=== PATIENT | male | born 1955 | race Caucasian/White ===

== ENCOUNTER 2018-01-29 08:26 | Emergency (ER) | payer SELFPAY ==
--- NOTE | 2018-01-29 09:41 | ER ---
Nurse's Notes [facility] Name: Manfred Dominguez Age: 62 yrs Sex: Male : 1955 Arrival Date: 01/29/2018 Time: 08:30 Bed 6 Private MD: Out, [facility] Diagnosis: Sprain of other ligament of left ankle Presentation: 01/29 08:39 Presenting complaint: Patient states: fell off a step ladder about 1-2 feet high up on sv it. c/o left ankle pain and swelling. Denies head injury or LOC. Pt reports able to ambulate on it. Transition of care: patient was not received from another setting of care. Onset of symptoms was January 28, 2018. Risk Assessment: Do you want to hurt yourself or someone else? Patient reports no desire to harm self or others. Initial Sepsis Screen: Does the patient meet any 2 criteria? No. Patient's initial sepsis screen is negative. Does the patient have a suspected source of infection? No. Patient's initial sepsis screen is negative. Care prior to arrival: None. 08:39 Method Of Arrival: Wheelchair sv 08:39 Acuity: CHIARA 4 sv Triage Assessment: 08:47 General: Appears in no apparent distress. uncomfortable, Behavior is calm, cooperative, sv appropriate for age. Pain: Complains of pain in left lateral malleolus Pain currently is 6 out of 10 on a pain scale. at worst was 8 out of 10 on a pain scale. Quality of pain is described as throbbing, Pain began 1 day ago. Is intermittent, Aggravated by increased activity, weight bearing. EENT: No signs and/or symptoms were reported regarding the EENT system. Neuro: Level of Consciousness is awake, alert, obeys commands, Oriented to person, place, time, situation, Speech is normal. Cardiovascular: Patient's skin is warm and dry. Respiratory: Respiratory effort is even, unlabored, Respiratory pattern is regular, symmetrical. Derm: Skin is pink, warm \T\ dry. Musculoskeletal: Range of motion: intact in all extremities. Historical: - Allergies: 08:45 No Known Allergies; sv - Home Meds: 08:45 unknown HTN med [Active]; sv - PMHx: 08:45 Hypertension; sv - PSHx: 08:45 Appendectomy; Cholecystectomy; sv - Immunization history:: Adult Immunizations up to date. - Social history:: Smoking status: Patient/guardian denies using tobacco, Patient/guardian denies using alcohol, street drugs. - Ebola Screening: : No symptoms or risks identified at this time. Screenin:46 Abuse screen: Denies threats or abuse. Denies injuries from another. Nutritional sv screening: No deficits noted. Tuberculosis screening: No symptoms or risk factors identified. Fall Risk None identified. Assessment: 08:48 Reassessment: See triage assessment. sv 09:50 Reassessment: Patient appears in no apparent distress at this time. No changes from sv previously documented assessment. Patient and/or family updated on plan of care and expected duration. Pain level reassessed. Patient is alert, oriented x 3, equal unlabored respirations, skin warm/dry/pink. Vital Signs: 08:46 BP 140 / 93; Pulse 64; Resp 18; Temp 98.1; Pulse Ox 98% ; Weight 74.84 kg; Height 6 ft. sv 0 in. (182.88 cm); Pain 6/10; 09:51 BP 123 / 72; Pulse 62; sv 08:46 Body Mass Index 22.38 (74.84 kg, 182.88 cm) sv ED Course: 08:30 Patient arrived in ED. sb2 08:31 Out, [facility] is Private Physician. sb2 08:39 Edwin Nelson MD is Attending Physician. gs 08:43 Isabelle Galeas, MICHELLE is Primary Nurse. sv 08:45 Triage completed. sv 08:46 Arm band placed on right wrist. sv 08:46 Patient has correct armband on for positive identification. Bed in low position. Call sv light in reach. Side rails up X 1. Pulse ox on. NIBP on. Ice pack to injury. Head of bed elevated. 08:48 Awaiting for x-ray. sv 09:33 X-ray completed. Portable x-ray completed in exam room. Patient tolerated procedure la2 well. 09:35 Ankle Left 3 View XRAY In Process Unspecified. EDMS 09:50 No provider procedures requiring assistance completed. Patient did not have IV access sv during this emergency room visit. Troy wrap to left ankle. Administered Medications: No medications were administered Outcome: 09:41 Discharge ordered by . gs 09:50 Discharged to home ambulatory. sv 09:50 Condition: stable 09:50 Discharge instructions given to patient, Instructed on discharge instructions, follow up and referral plans. troy wrap application Demonstrated understanding of instructions, follow-up care. 09:51 Patient left the ED. sv Signatures: Dispatcher [employer] Isabelle Guzman RN RN sv Starr, Gregory, MD MD gs Ardoin, Leslie la2 Vivienne Hamilton2
--- NOTE | 2018-01-29 09:41 | EDPHYS ---
Physician Documentation [facility] Name: Manfred Dominguez Age: 62 yrs Sex: Male : 1955 Arrival Date: 01/29/2018 Time: 08:30 Bed 6 Private MD: Out, [facility] ED Physician Edwin Nelson HPI: 01/29 09:30 This 62 yrs old Male presents to ER via Wheelchair with complaints of Fall gs Injury - Foot. 09:30 The patient presents with an injury. The complaints affect the left ankle. Onset: The gs symptoms/episode began/occurred acutely, today. Context: resulted from a mis-step by the patient, The mechanism of injury involved eversion of the affected ankle. Associated signs and symptoms: Pertinent positives: swelling, Pertinent negatives: numbness, weakness. Modifying factors: the symptoms are aggravated by weight bearing. Severity of symptoms: At their worst the symptoms were moderate, in the emergency department the symptoms are unchanged. The patient has not experienced similar symptoms in the past. Historical: - Allergies: 08:45 No Known Allergies; sv - Home Meds: 08:45 unknown HTN med [Active]; sv - PMHx: 08:45 Hypertension; sv - PSHx: 08:45 Appendectomy; Cholecystectomy; sv - Immunization history:: Adult Immunizations up to date. - Social history:: Smoking status: Patient/guardian denies using tobacco, Patient/guardian denies using alcohol, street drugs. - Ebola Screening: : No symptoms or risks identified at this time. ROS: 09:30 All other systems are negative. gs Exam: 09:30 ENT: Nares patent. No nasal discharge, no septal abnormalities noted. Tympanic gs membranes are normal and external auditory canals are clear. Oropharynx with no redness, swelling, or masses, exudates, or evidence of obstruction, uvula midline. Mucous membranes moist. Neck: Trachea midline, no thyromegaly or masses palpated, and no cervical lymphadenopathy. Supple, full range of motion without nuchal rigidity, or vertebral point tenderness. No Meningismus. Back: No spinal tenderness. No costovertebral tenderness. Full range of motion. Skin: Warm, dry with normal turgor. Normal color with no rashes, no lesions, and no evidence of cellulitis. Neuro: Awake and alert, GCS 15, oriented to person, place, time, and situation. Cranial nerves II-XII grossly intact. Motor strength 5/5 in all extremities. Sensory grossly intact. Cerebellar exam normal. Normal gait. 09:30 Constitutional: The patient appears alert, awake. 09:30 Musculoskeletal/extremity: Circulation is intact in all extremities. the left lateral malleolus Sensation intact. Joints: the left ankle displays painful range of motion, swelling, tenderness. Vital Signs: 08:46 BP 140 / 93; Pulse 64; Resp 18; Temp 98.1; Pulse Ox 98% ; Weight 74.84 kg; Height 6 ft. sv 0 in. (182.88 cm); Pain 6/10; 09:51 BP 123 / 72; Pulse 62; sv 08:46 Body Mass Index 22.38 (74.84 kg, 182.88 cm) sv MDM: 08:41 Patient medically screened. 09:30 Differential diagnosis: fracture, sprain, arthritis. Data reviewed: vital signs, nurses gs notes. Response to treatment: the patient's symptoms have mildly improved after treatment, and as a result, I will discharge patient. 01/29 08:54 Order name: Ankle Left 3 View XRAY 01/29 09:47 Order name: Troy wrap-joint; Complete Time: 09:50 gs Administered Medications: No medications were administered Disposition: 01/29/18 09:41 Discharged to Home. Impression: Sprain of other ligament of left ankle. - Condition is Stable. - Discharge Instructions: Ankle Sprain. - Medication Reconciliation Form, Thank You Letter, Antibiotic Education, Prescription Opioid Use form. - Follow up: Private Physician; When: 2 - 3 days; Reason: Re-evaluation by your physician. Signatures: Dispatcher [employer] Isabelle Guzman RN RN Edwin Nelson MD MD Corrections: (The following items were deleted from the chart) 09:51 09:41 01/29/2018 09:41 Discharged to Home. Impression: Sprain of other ligament of left sv ankle. Condition is Stable. Forms are Medication Reconciliation Form, Thank You Letter, Antibiotic Education, Prescription Opioid Use. Follow up: Private Physician; When: 2 - 3 days; Reason: Re-evaluation by your physician.
--- NOTE | 2018-01-29 11:51 | RAD REPORT ---
EXAM DESCRIPTION: RAD - Ankle Left 3 View - 01/29/2018 9:36 am CLINICAL HISTORY: PAIN Lateral ankle pain COMPARISON: No comparisons FINDINGS: Soft tissue swelling is seen the lateral aspect of the ankle. Prominent calcaneal spurs ar e noted. No fracture or dislocation seen.
== END 2018-01-29 09:51 | disposition home or self-care (01) ==
LOC: ER 08:26
DX: S93.492A Sprain of other ligament of left ankle, initial encounter (principal); X58.XXXA Exposure to other specified factors, initial encounter; Y93.01 Activity, walking, marching and hiking; Y92.9 Unspecified place or not applicable; I10 Essential (primary) hypertension
CPT/HCPCS: 99284